=== PATIENT | male | born 1970 | race Two or more races ===

== ENCOUNTER 2021-09-11 13:50 | Inpatient (IN) | payer MEDICAID, OTHER ==
[~2021-09-11] VITALS: Ht 170.2 cm; Wt 77.0 kg
[2021-09-11 15:09] LABS: Basophils # (auto) 0 10 ^3/uL (0-0.2); Basophils % (auto) 0.1 % (0.0-2.0); Eosinophils # (auto) 0 10 ^3/uL (0-0.8); Hematocrit 48.2 % (41.0-53.0); Hemoglobin 15.9 g/dL (13.5-17.5); Lymphocytes # (auto) 0.1 10 ^3/uL (0.4-5.4); Lymphocytes % (auto) 0.8 % (10.0-50.0); Mean Corpuscular Hgb Conc. 32.9 g/dL (32.0-36.0); Mean Corpuscular Volume 88.1 fL (80.0-100.0); Monocytes # (auto) 0.2 10 ^3/uL (0-1.3); Monocytes % (auto) 1.3 % (0.0-12.0); Neutrophils # (auto) 14.3 10 ^3/uL (1.6-8.6); Neutrophils % (auto) 97.8 % (37.0-80.0); Red Blood Cells 5.47 10^6/uL (4.5-5.90); Red Cell Distribution Width 14.9 % (11.8-14.3); White Blood Cell 14.6 10^3/uL (4.4-10.8)
[2021-09-11 15:35] LABS: Albumin 3.1 g/dL (3.4-5.0); Calcium 8.5 mg/dL (8.5-10.1); Magnesium 1.9 mg/dL (1.6-2.6); Potassium 3.1 mmol/L (3.5-5.1)
[2021-09-11 15:37] LABS: Lactic Acid w/Reflex 3.5 mmol/L (0.4-2.0)
[2021-09-11 15:40] LABS: Bilirubin, Total 3.5 mg/dL (0.2-1.0)
[2021-09-11] MEDS ORDERED: NITROGLYCERIN 0.4 MG SL TAB SL PRN (17:15)
[2021-09-11] MEDS ORDERED: MORPHINE SULFATE INJECTION 2 MG/ML SYRG IV PRN (17:15)
[2021-09-11] MEDS: POTASSIUM CHL 20MEQ/100ML 100 ML IV SCH ×2 (17:45→18:40)
[2021-09-11 22:00] VITALS: BP 109/75
[2021-09-12] VITALS (8 sets, daily range): BP systolic 87–118; BP diastolic 53–77
[2021-09-12 00:41] LABS: Magnesium 1.8 mg/dL (1.6-2.6); Phosphorus 3.2 mg/dL (2.5-4.90)
[2021-09-12] MEDS ORDERED: AZITHROMYCIN 500MG/ 250ML 250 ML IV ONE (01:15)
[2021-09-12] MEDS ORDERED: ACETAMINOPHEN 325 MG TAB PO PRN ×2 (01:15→08:30)
[2021-09-12] MEDS ORDERED: cefTRIAXone 1GM/50ML D5W 50 ML IV ONE (01:15)
[2021-09-12] MEDS ORDERED: SODIUM CHLORIDE 0.9% 250 ML IV ONE (01:15)
[2021-09-12] MEDS ORDERED: VANCOMYCIN PER PHARMACY 0 MG IV SCH (01:30)
[2021-09-12] MEDS ORDERED: VANCOMYCIN 1GM/250ML 250 ML IV ONE (01:45)
[2021-09-12 02:57] LABS: INR 2.1 (0.9-1.15); Partial Thromboplastin Time 34.9 sec (23.6-33.0)
[2021-09-12 03:05] LABS: Alcohol, Urine < 3.0 mg/dL (0-10); Amphetamine Screen, Urine POSITIVE (NEGATIVE); Barbiturate Scree,Urine NEGATIVE (NEGATIVE); Benzodiazephine Screen, Urine NEGATIVE (NEGATIVE); Cannabinoid Screen, Urine POSITIVE (NEGATIVE); Cocaine Screen, Urine NEGATIVE (NEGATIVE); Opiate Scree,Urine NEGATIVE (NEGATIVE); Phencyclidine Screen, Urine NEGATIVE (NEGATIVE)
[2021-09-12 03:17] LABS: Urine Bacteria NONE SEEN /hpf (None Seen); Urine Blood TRACE /uL (Negative); Urine Hyaline Cast FEW /lpf (0 - 2); Urine Mucus FEW (None Seen); Urine Specific Gravity 1.023 (1.001-1.035); Urine WBC 4 /hpf (0 - 3)
[2021-09-12 05:47] LABS: Basophils # (auto) 0 10 ^3/uL (0-0.2); Basophils % (auto) 0.1 % (0.0-2.0); Eosinophils # (auto) 0 10 ^3/uL (0-0.8); Hematocrit 42.8 % (41.0-53.0); Hemoglobin 14.3 g/dL (13.5-17.5); Lymphocytes # (auto) 0.4 10 ^3/uL (0.4-5.4); Lymphocytes % (auto) 2.4 % (10.0-50.0); Mean Corpuscular Hemoglobin 29.5 pg (28.0-32.0); Mean Corpuscular Hgb Conc. 33.4 g/dL (32.0-36.0); Mean Corpuscular Volume 88.2 fL (80.0-100.0); Monocytes # (auto) 0.5 10 ^3/uL (0-1.3); Monocytes % (auto) 3.3 % (0.0-12.0); Neutrophils # (auto) 14.8 10 ^3/uL (1.6-8.6); Neutrophils % (auto) 94.2 % (37.0-80.0); Red Blood Cells 4.85 10^6/uL (4.5-5.90); White Blood Cell 15.7 10^3/uL (4.4-10.8)
[2021-09-12 06:04] LABS: Lactic Acid w/Reflex 3.4 mmol/L (0.4-2.0)
[2021-09-12 06:07] LABS: INR 2.24 (0.9-1.15); Partial Thromboplastin Time 35.3 sec (23.6-33.0)
[2021-09-12 06:08] LABS: Potassium 4.1 mmol/L (3.5-5.1)
[2021-09-12 06:25] LABS: Albumin 2.5 g/dL (3.4-5.0); BUN/Creatinine Ratio 15.3; Bilirubin, Total 2.7 mg/dL (0.2-1.0); CRP High Sensitivity 16.5 mg/dL (< 0.3); Calcium 7.9 mg/dL (8.5-10.1); Magnesium 1.7 mg/dL (1.6-2.6); Phosphorus 3.6 mg/dL (2.5-4.90); Total Protein 6.1 g/dL (6.4-8.2); Uric Acid 7.1 mg/dL (3.5-7.2)
[2021-09-12 06:47] LABS: Thyroid Stimulating Hormone 1.74 uIU/mL (0.358-3.74)
[2021-09-12] MEDS ORDERED: ALBUTEROL SULF 2.5 MG/0.5ML(0.5%) NEB SOLN NEB ONE (08:30)
[2021-09-12] MEDS ORDERED: FOLIC ACID 1 MG TAB PO ONE (08:30)
[2021-09-12] MEDS ORDERED: rifAMPin IV 600 MG in SODIUM CHL 0.9% 100 ML IV ONE (08:30)
[2021-09-12] MEDS ORDERED: SUCRALFATE 1 GM/10 ML ORAL SUSP PO ONE (08:30)
[2021-09-12] MEDS ORDERED: GENTAMICIN PER PHARMACY 0 ML IV SCH (08:30)
[2021-09-12] MEDS ORDERED: ONDANSETRON HCL 4 MG/2 ML VIAL IV PRN (08:30)
[2021-09-12] MEDS ORDERED: PROMETHAZINE-DM 5 ML ORAL SYRUP PO PRN (08:30)
[2021-09-12] MEDS ORDERED: BUDESONIDE (INHALATION) 0.5 MG/2 ML NEB NEB ONE (08:30)
[2021-09-12] MEDS ORDERED: LORazepam 0.5 MG TAB PO PRN (08:30)
[2021-09-12] MEDS ORDERED: DOCUSATE SOD 100 MG CAP PO PRN (08:30)
[2021-09-12] MEDS ORDERED: LACTULOSE 20Gm/30ML SOLN PO PRN (08:30)
[2021-09-12] MEDS ORDERED: FERROUS SULFATE 325mg EC TAB PO ONE (08:30)
[2021-09-12] MEDS ORDERED: MULTIPLE VITAMINS W/ MINERALS TAB PO ONE (08:30)
[2021-09-12] MEDS ORDERED: IPRATROPIUM BROM 0.5 MG/2.5ML INH SOL NEB ONE (08:30)
[2021-09-12] MEDS ORDERED: HYDROcodone-ACET 5/325MG TAB PO ONE (08:30)
[2021-09-12] MEDS ORDERED: PANTOPRAZOLE 40 MG/10 ML VIAL INJ IV ONE (08:30)
[2021-09-12] MEDS ORDERED: hydrALAZINE HCL 20 MG/ML VL IV PRN (08:30)
[2021-09-12] MEDS ORDERED: MORPHINE SULFATE INJECTION 2 MG/ML SYRG IV PRN (08:30)
[2021-09-12] MEDS ORDERED: MONTELUKAST SODIUM 10 MG TAB PO ONE (08:30)
[2021-09-12] MEDS ORDERED: rifAMPin IV 600 MG in SODIUM CHL 0.9% 100 ML IV SCH (10:00)
[2021-09-12] MEDS ORDERED: APIXABAN 5 MG TAB PO SCH (10:00)
[2021-09-12] MEDS: PANTOPRAZOLE 40 MG/10 ML VIAL INJ IV SCH (11:20)
[2021-09-12] MEDS: FOLIC ACID 1 MG TAB PO SCH (11:21)
[2021-09-12] MEDS: THIAMINE HCL 100 MG TAB PO SCH (11:21)
[2021-09-12] MEDS: ASPirin 81 mg TAB PO SCH (11:21)
[2021-09-12] MEDS: MULTIPLE VITAMINS W/ MINERALS TAB PO SCH (11:22)
[2021-09-12] MEDS: CYANOCOBALAMIN 500 MCG TAB PO SCH (11:22)
[2021-09-12] MEDS: CHOLECALCIFEROL (VITD3) 2,000 UNIT CAP/TAB PO SCH (11:23)
[2021-09-12] MEDS: SUCRALFATE 1 GM/10 ML ORAL SUSP PO SCH ×3 (11:23→22:48)
[2021-09-12] MEDS: FUROSEMIDE 20 MG/2 ML VIAL IV SCH ×2 (11:36→18:05)
[2021-09-12] MEDS ORDERED: FERROUS SULFATE 325mg EC TAB PO SCH (12:00)
[2021-09-12] MEDS ORDERED: HYDROcodone-ACET 5/325MG TAB PO PRN (14:30)
[2021-09-12] MEDS ORDERED: MEROPENEM 1GM IVPB 100 ML IV ONE (15:15)
[2021-09-12] MEDS ORDERED: DOBUTamine 1000MCG/ML 250 ML IV SCH (15:30)
[2021-09-12] MEDS: IPRATROPIUM BROM 0.5 MG/2.5ML INH SOL NEB SCH ×2 (19:22→22:16)
[2021-09-12] MEDS: ALBUTEROL SULF 2.5 MG/0.5ML(0.5%) NEB SOLN NEB PRN ×2 (19:22→22:16)
[2021-09-12] MEDS ORDERED: AZITHROMYCIN 500MG/ 250ML 250 ML IV SCH (21:00)
[2021-09-12] MEDS ORDERED: cefTRIAXone 1GM/50ML D5W 50 ML IV SCH (21:00)
[2021-09-12] MEDS ORDERED: ATORVASTATIN 20 MG TAB PO SCH (22:00)
[2021-09-12] MEDS ORDERED: MONTELUKAST SODIUM 10 MG TAB PO SCH (22:00)
[2021-09-12] MEDS: ACETYLCYSTEINE 10 %(100MG/ML) SOL 4ML NEB SCH (22:16)
[2021-09-12] MEDS: BUDESONIDE (INHALATION) 0.5 MG/2 ML NEB NEB SCH (22:17)
[2021-09-12] MEDS: QUEtiapine FUMARATE 25 MG TAB PO SCH (22:48)
[2021-09-12] MEDS: SILDENAFIL CITRATE 20 MG TAB PO SCH (22:48)
[2021-09-12] MEDS ORDERED: ALBUMIN 5% 250 ML IV ONE (23:45)
[2021-09-13] VITALS (58 sets, daily range): BP systolic 83–122; BP diastolic 44–87
[2021-09-13] MEDS ORDERED: VANCOMYCIN 1GM/250ML 250 ML IV SCH (03:00)
[2021-09-13] MEDS: IPRATROPIUM BROM 0.5 MG/2.5ML INH SOL NEB SCH ×6 (03:47→22:48)
[2021-09-13] MEDS: ALBUTEROL SULF 2.5 MG/0.5ML(0.5%) NEB SOLN NEB PRN ×2 (03:47→05:55)
[2021-09-13] MEDS ORDERED: MEROPENEM 1GM IVPB 100 ML IV SCH (04:00)
[2021-09-13] MEDS: BUDESONIDE (INHALATION) 0.5 MG/2 ML NEB NEB SCH ×2 (05:55→19:01)
[2021-09-13] MEDS: ACETYLCYSTEINE 10 %(100MG/ML) SOL 4ML NEB SCH ×3 (05:56→19:16)
[2021-09-13 06:00] LABS: Basophils # (auto) 0.1 10 ^3/uL (0-0.2); Basophils % (auto) 0.5 % (0.0-2.0); Eosinophils # (auto) 0 10 ^3/uL (0-0.8); Eosinophils % (auto) 0.4 % (0.0-7.0); Hematocrit 39.7 % (41.0-53.0); Hemoglobin 13.6 g/dL (13.5-17.5); Lymphocytes # (auto) 0.4 10 ^3/uL (0.4-5.4); Lymphocytes % (auto) 3.8 % (10.0-50.0); Mean Corpuscular Hemoglobin 29.7 pg (28.0-32.0); Mean Corpuscular Hgb Conc. 34.3 g/dL (32.0-36.0); Mean Corpuscular Volume 86.6 fL (80.0-100.0); Monocytes # (auto) 0.4 10 ^3/uL (0-1.3); Monocytes % (auto) 4.5 % (0.0-12.0); Neutrophils # (auto) 8.9 10 ^3/uL (1.6-8.6); Neutrophils % (auto) 90.8 % (37.0-80.0); Red Blood Cells 4.58 10^6/uL (4.5-5.90); White Blood Cell 9.8 10^3/uL (4.4-10.8)
[2021-09-13 06:20] LABS: INR 1.49 (0.9-1.15)
[2021-09-13 06:23] LABS: Potassium 3.6 mmol/L (3.5-5.1)
[2021-09-13 06:24] LABS: Albumin 2.3 g/dL (3.4-5.0); BUN/Creatinine Ratio 23.3; Calcium 7.8 mg/dL (8.5-10.1)
[2021-09-13 06:36] LABS: Bilirubin, Total 2.5 mg/dL (0.2-1.0); Total Protein 5.6 g/dL (6.4-8.2)
[2021-09-13] MEDS: SUCRALFATE 1 GM/10 ML ORAL SUSP PO SCH ×4 (06:38→21:20)
[2021-09-13] MEDS: FUROSEMIDE 20 MG/2 ML VIAL IV SCH ×2 (07:15→17:54)
[2021-09-13] MEDS: MULTIPLE VITAMINS W/ MINERALS TAB PO SCH (10:00)
[2021-09-13 10:02] LABS: Hepatitis B Surface Antibody Negative (Negative)
[2021-09-13] MEDS: THIAMINE HCL 100 MG TAB PO SCH (10:06)
[2021-09-13] MEDS: CHOLECALCIFEROL (VITD3) 2,000 UNIT CAP/TAB PO SCH (10:06)
[2021-09-13] MEDS: FOLIC ACID 1 MG TAB PO SCH (10:06)
[2021-09-13] MEDS: CYANOCOBALAMIN 500 MCG TAB PO SCH (10:06)
[2021-09-13] MEDS: SILDENAFIL CITRATE 20 MG TAB PO SCH ×3 (10:06→21:20)
[2021-09-13] MEDS: ASPirin 81 mg TAB PO SCH (10:06)
[2021-09-13] MEDS: PANTOPRAZOLE 40 MG/10 ML VIAL INJ IV SCH (10:07)
[2021-09-13] MEDS ORDERED: QUET1TAB11 PO (10:24)
[2021-09-13 10:30] LABS: Hepatitis A Total Antibody Negative (Negative)
[2021-09-13 12:19] LABS: Hepatitis C Antibody Negative (Negative)
[2021-09-13] MEDS: AMPICILLIN INJ 1 GM in SODIUM CHL 0.9% 50 ML IV SCH (18:25)
[2021-09-13] MEDS: QUEtiapine FUMARATE 25 MG TAB PO SCH (21:21)
[2021-09-14] VITALS (19 sets, daily range): BP systolic 79–103; BP diastolic 52–73
[2021-09-14] MEDS: AMPICILLIN INJ 1 GM in SODIUM CHL 0.9% 50 ML IV SCH ×4 (00:19→17:21)
[2021-09-14] MEDS: IPRATROPIUM BROM 0.5 MG/2.5ML INH SOL NEB SCH ×6 (02:37→22:16)
[2021-09-14 04:15] LABS: Basophils # (auto) 0 10 ^3/uL (0-0.2); Basophils % (auto) 0.3 % (0.0-2.0); Eosinophils # (auto) 0 10 ^3/uL (0-0.8); Eosinophils % (auto) 0.6 % (0.0-7.0); Hematocrit 38.3 % (41.0-53.0); Hemoglobin 13.3 g/dL (13.5-17.5); Lymphocytes # (auto) 0.8 10 ^3/uL (0.4-5.4); Lymphocytes % (auto) 9.4 % (10.0-50.0); Mean Corpuscular Hemoglobin 29.8 pg (28.0-32.0); Mean Corpuscular Hgb Conc. 34.6 g/dL (32.0-36.0); Monocytes # (auto) 0.7 10 ^3/uL (0-1.3); Monocytes % (auto) 8.4 % (0.0-12.0); Neutrophils # (auto) 6.6 10 ^3/uL (1.6-8.6); Neutrophils % (auto) 81.3 % (37.0-80.0); Red Blood Cells 4.46 10^6/uL (4.5-5.90); Red Cell Distribution Width 15.3 % (11.8-14.3); White Blood Cell 8.2 10^3/uL (4.4-10.8)
[2021-09-14 04:27] LABS: INR 1.23 (0.9-1.15)
[2021-09-14 04:28] LABS: Albumin 2.2 g/dL (3.4-5.0); BUN/Creatinine Ratio 20.6; Calcium 7.6 mg/dL (8.5-10.1); Potassium 3.5 mmol/L (3.5-5.1)
[2021-09-14 04:31] LABS: Bilirubin, Total 1.8 mg/dL (0.2-1.0); Total Protein 5.8 g/dL (6.4-8.2)
[2021-09-14] MEDS: FUROSEMIDE 20 MG/2 ML VIAL IV SCH (05:45)
[2021-09-14] MEDS: SUCRALFATE 1 GM/10 ML ORAL SUSP PO SCH ×4 (06:21→22:00)
[2021-09-14] MEDS: BUDESONIDE (INHALATION) 0.5 MG/2 ML NEB NEB SCH ×2 (06:35→22:16)
[2021-09-14] MEDS: ALBUTEROL SULF 2.5 MG/0.5ML(0.5%) NEB SOLN NEB PRN ×2 (06:35→14:32)
[2021-09-14] MEDS: ACETYLCYSTEINE 10 %(100MG/ML) SOL 4ML NEB SCH (06:35)
[2021-09-14] MEDS: CHOLECALCIFEROL (VITD3) 2,000 UNIT CAP/TAB PO SCH (09:30)
[2021-09-14] MEDS: ASPirin 81 mg TAB PO SCH (09:30)
[2021-09-14] MEDS: PANTOPRAZOLE 40 MG/10 ML VIAL INJ IV SCH (09:30)
[2021-09-14] MEDS: MULTIPLE VITAMINS W/ MINERALS TAB PO SCH (09:30)
[2021-09-14] MEDS: CYANOCOBALAMIN 500 MCG TAB PO SCH (09:31)
[2021-09-14] MEDS: FOLIC ACID 1 MG TAB PO SCH (09:31)
[2021-09-14] MEDS: THIAMINE HCL 100 MG TAB PO SCH (09:31)
[2021-09-14] MEDS: SILDENAFIL CITRATE 20 MG TAB PO SCH ×2 (09:36→22:00)
[2021-09-14] MEDS: QUEtiapine FUMARATE 25 MG TAB PO SCH (22:00)
[2021-09-15] MEDS: IPRATROPIUM BROM 0.5 MG/2.5ML INH SOL NEB SCH ×7 (02:24→21:47)
[2021-09-15 05:18] VITALS: BP 109/69
[2021-09-15 05:52] LABS: Basophils # (auto) 0.1 10 ^3/uL (0-0.2); Basophils % (auto) 2.5 % (0.0-2.0); Eosinophils # (auto) 0.1 10 ^3/uL (0-0.8); Eosinophils % (auto) 2.5 % (0.0-7.0); Hematocrit 37.8 % (41.0-53.0); Lymphocytes # (auto) 0.8 10 ^3/uL (0.4-5.4); Lymphocytes % (auto) 16.5 % (10.0-50.0); Mean Corpuscular Hemoglobin 29.5 pg (28.0-32.0); Mean Corpuscular Hgb Conc. 34.5 g/dL (32.0-36.0); Mean Corpuscular Volume 85.4 fL (80.0-100.0); Monocytes # (auto) 0.8 10 ^3/uL (0-1.3); Neutrophils # (auto) 3.2 10 ^3/uL (1.6-8.6); Neutrophils % (auto) 62.5 % (37.0-80.0); Nucleated Red Blood Cells % 0.1 %; Red Blood Cells 4.43 10^6/uL (4.5-5.90); White Blood Cell 5.1 10^3/uL (4.4-10.8)
[2021-09-15] MEDS: AMPICILLIN INJ 1 GM in SODIUM CHL 0.9% 50 ML IV SCH ×5 (06:00→17:37)
[2021-09-15 06:04] LABS: INR 1.2 (0.9-1.15)
[2021-09-15] MEDS: SUCRALFATE 1 GM/10 ML ORAL SUSP PO SCH ×4 (06:08→21:11)
[2021-09-15 06:11] LABS: Potassium 3.5 mmol/L (3.5-5.1)
[2021-09-15 06:19] LABS: Albumin 2.2 g/dL (3.4-5.0); Calcium 8.1 mg/dL (8.5-10.1); Magnesium 2.1 mg/dL (1.6-2.6)
[2021-09-15 06:29] LABS: Bilirubin, Total 1.4 mg/dL (0.2-1.0); Total Protein 5.9 g/dL (6.4-8.2)
[2021-09-15] MEDS: BUDESONIDE (INHALATION) 0.5 MG/2 ML NEB NEB SCH ×3 (07:39→21:47)
[2021-09-15] MEDS: ALBUTEROL SULF 2.5 MG/0.5ML(0.5%) NEB SOLN NEB PRN ×2 (07:39→13:37)
[2021-09-15 09:00] VITALS: BP 99/67
[2021-09-15] MEDS: FUROSEMIDE 20 MG/2 ML VIAL IV SCH (09:45)
[2021-09-15] MEDS: MULTIPLE VITAMINS W/ MINERALS TAB PO SCH (09:46)
[2021-09-15] MEDS: PANTOPRAZOLE 40 MG/10 ML VIAL INJ IV SCH (09:46)
[2021-09-15] MEDS: SILDENAFIL CITRATE 20 MG TAB PO SCH ×2 (09:46→21:11)
[2021-09-15] MEDS: FOLIC ACID 1 MG TAB PO SCH (09:46)
[2021-09-15] MEDS: THIAMINE HCL 100 MG TAB PO SCH (09:46)
[2021-09-15] MEDS: ASPirin 81 mg TAB PO SCH (09:46)
[2021-09-15] MEDS: ENOXAPARIN SOD 40 MG/0.4 ML SYRINGE SC SCH (09:47)
[2021-09-15] MEDS: CHOLECALCIFEROL (VITD3) 2,000 UNIT CAP/TAB PO SCH (09:47)
[2021-09-15] MEDS: SODIUM CHLORIDE 0.9% 1,000 ML IV SCH ×2 (11:47→22:41)
[2021-09-15 13:00] VITALS: BP 116/78
[2021-09-15 17:00] VITALS: BP 99/67
[2021-09-15] MEDS: QUEtiapine FUMARATE 25 MG TAB PO SCH (21:11)
[2021-09-15 22:00] VITALS: BP 130/71
[2021-09-16] MEDS: AMPICILLIN INJ 1 GM in SODIUM CHL 0.9% 50 ML IV SCH ×4 (00:16→17:50)
[2021-09-16 01:16] VITALS: BP 108/63
[2021-09-16] MEDS: IPRATROPIUM BROM 0.5 MG/2.5ML INH SOL NEB SCH ×6 (02:08→21:22)
[2021-09-16 05:10] VITALS: BP 122/80
[2021-09-16] MEDS: SUCRALFATE 1 GM/10 ML ORAL SUSP PO SCH ×4 (06:03→21:23)
[2021-09-16] MEDS: BUDESONIDE (INHALATION) 0.5 MG/2 ML NEB NEB SCH ×2 (06:22→18:55)
[2021-09-16] MEDS: SODIUM CHLORIDE 0.9% 1,000 ML IV SCH ×2 (07:13→11:55)
[2021-09-16 08:36] VITALS: BP 120/74
[2021-09-16] MEDS: FUROSEMIDE 20 MG/2 ML VIAL IV SCH (10:27)
[2021-09-16] MEDS: PANTOPRAZOLE 40 MG/10 ML VIAL INJ IV SCH (10:27)
[2021-09-16] MEDS: ASPirin 81 mg TAB PO SCH (10:27)
[2021-09-16] MEDS: SILDENAFIL CITRATE 20 MG TAB PO SCH ×2 (10:27→21:23)
[2021-09-16] MEDS: CHOLECALCIFEROL (VITD3) 2,000 UNIT CAP/TAB PO SCH (10:27)
[2021-09-16] MEDS: MULTIPLE VITAMINS W/ MINERALS TAB PO SCH (10:27)
[2021-09-16] MEDS: FOLIC ACID 1 MG TAB PO SCH (10:27)
[2021-09-16] MEDS: THIAMINE HCL 100 MG TAB PO SCH (10:27)
[2021-09-16] MEDS: ENOXAPARIN SOD 40 MG/0.4 ML SYRINGE SC SCH (10:28)
[2021-09-16 11:09] LABS: Urine Bacteria FEW /hpf (None Seen); Urine Blood 3+ /uL (Negative); Urine Specific Gravity 1.014 (1.001-1.035); Urine WBC 245 /hpf (0 - 3); Urine WBC Clumps PRESENT /hpf (None Seen)
[2021-09-16 11:15] LABS: Protein, Urine 88.7 mg/dL (0.0-11.9)
[2021-09-16] MEDS ORDERED: POTASSIUM PHOSPHATE 22 MEQ in SODIUM CHL 0.9% 100 ML IV ONE (11:45)
[2021-09-16 13:00] VITALS: BP 110/75
[2021-09-16] MEDS: MAGNESIUM SULFATE 1GM/100ML 100 ML IV SCH ×3 (13:28→16:40)
[2021-09-16 17:00] VITALS: BP 107/72
[2021-09-16] MEDS: ALBUTEROL SULF 2.5 MG/0.5ML(0.5%) NEB SOLN NEB PRN ×2 (18:55→21:21)
[2021-09-16] MEDS: QUEtiapine FUMARATE 25 MG TAB PO SCH (21:23)
[2021-09-16 21:36] VITALS: BP 121/80
[2021-09-17] MEDS: AMPICILLIN INJ 1 GM in SODIUM CHL 0.9% 50 ML IV SCH ×5 (00:26→23:58)
[2021-09-17] MEDS: ALBUTEROL SULF 2.5 MG/0.5ML(0.5%) NEB SOLN NEB PRN ×4 (01:51→21:46)
[2021-09-17] MEDS: IPRATROPIUM BROM 0.5 MG/2.5ML INH SOL NEB SCH ×6 (01:51→21:47)
[2021-09-17] MEDS: SODIUM CHLORIDE 0.9% 1,000 ML IV SCH ×2 (03:51→12:15)
[2021-09-17 04:40] VITALS: BP 120/67
[2021-09-17] MEDS: SUCRALFATE 1 GM/10 ML ORAL SUSP PO SCH ×4 (06:00→21:30)
[2021-09-17 08:51] VITALS: BP 110/58
[2021-09-17] MEDS: FOLIC ACID 1 MG TAB PO SCH (09:07)
[2021-09-17] MEDS: ASPirin 81 mg TAB PO SCH (09:07)
[2021-09-17] MEDS: PANTOPRAZOLE 40 MG/10 ML VIAL INJ IV SCH (09:07)
[2021-09-17] MEDS: FUROSEMIDE 20 MG/2 ML VIAL IV SCH (09:07)
[2021-09-17] MEDS: CHOLECALCIFEROL (VITD3) 2,000 UNIT CAP/TAB PO SCH (09:08)
[2021-09-17] MEDS: SILDENAFIL CITRATE 20 MG TAB PO SCH ×2 (09:08→21:31)
[2021-09-17] MEDS: ENOXAPARIN SOD 40 MG/0.4 ML SYRINGE SC SCH (09:08)
[2021-09-17] MEDS: THIAMINE HCL 100 MG TAB PO SCH (09:08)
[2021-09-17] MEDS: MULTIPLE VITAMINS W/ MINERALS TAB PO SCH (09:08)
[2021-09-17] MEDS: BUDESONIDE (INHALATION) 0.5 MG/2 ML NEB NEB SCH ×2 (10:00→19:24)
[2021-09-17 13:00] VITALS: BP 119/81
[2021-09-17 16:48] VITALS: BP 120/81
[2021-09-17 20:00] VITALS: BP 119/82
[2021-09-17] MEDS: QUEtiapine FUMARATE 25 MG TAB PO SCH (21:31)
[2021-09-18] MEDS: IPRATROPIUM BROM 0.5 MG/2.5ML INH SOL NEB SCH ×4 (02:00→13:19)
[2021-09-18] MEDS: SODIUM CHLORIDE 0.9% 1,000 ML IV SCH (02:43)
[2021-09-18 05:25] VITALS: BP 116/72
[2021-09-18] MEDS: AMPICILLIN INJ 1 GM in SODIUM CHL 0.9% 50 ML IV SCH ×2 (06:13→12:36)
[2021-09-18 06:26] LABS: Albumin 2.3 g/dL (3.4-5.0); Calcium 7.8 mg/dL (8.5-10.1); Potassium 3.5 mmol/L (3.5-5.1)
[2021-09-18 06:28] LABS: BUN/Creatinine Ratio 18.9; Magnesium 2.1 mg/dL (1.6-2.6)
[2021-09-18 06:39] LABS: INR 1.21 (0.9-1.15)
[2021-09-18 06:48] LABS: Hematocrit 37.2 % (41.0-53.0); Hemoglobin 12.7 g/dL (13.5-17.5); Mean Corpuscular Hemoglobin 29.3 pg (28.0-32.0); Mean Corpuscular Hgb Conc. 34.1 g/dL (32.0-36.0); Red Blood Cells 4.32 10^6/uL (4.5-5.90); Red Cell Distribution Width 15.1 % (11.8-14.3); White Blood Cell 5.9 10^3/uL (4.4-10.8)
[2021-09-18] MEDS: BUDESONIDE (INHALATION) 0.5 MG/2 ML NEB NEB SCH (07:01)
[2021-09-18] MEDS: ALBUTEROL SULF 2.5 MG/0.5ML(0.5%) NEB SOLN NEB PRN (07:01)
[2021-09-18] MEDS: SUCRALFATE 1 GM/10 ML ORAL SUSP PO SCH ×2 (07:05→12:00)
[2021-09-18 07:07] LABS: Basophils % (manual) 0 (0.0-2.0); Blast Cells 0; Myelocytes % 0; Reactive Lymphocytes 0
[2021-09-18 08:49] LABS: Band Neutrophils % (manual) 1; Eosinophils % (manual) 3 (0-7); Lymphocytes % (manual) 11 (10.0-50.0); Metamyelocytes % 1; Monocytes % (manual) 9 (0-12); Promyelocytes % 1
[2021-09-18 09:00] VITALS: BP 124/92
[2021-09-18] MEDS: FUROSEMIDE 20 MG/2 ML VIAL IV SCH (09:16)
[2021-09-18] MEDS: CHOLECALCIFEROL (VITD3) 2,000 UNIT CAP/TAB PO SCH (09:17)
[2021-09-18] MEDS: MULTIPLE VITAMINS W/ MINERALS TAB PO SCH (09:17)
[2021-09-18] MEDS: FOLIC ACID 1 MG TAB PO SCH (09:17)
[2021-09-18] MEDS: SILDENAFIL CITRATE 20 MG TAB PO SCH (09:17)
[2021-09-18] MEDS: PANTOPRAZOLE 40 MG/10 ML VIAL INJ IV SCH (09:17)
[2021-09-18] MEDS: ENOXAPARIN SOD 40 MG/0.4 ML SYRINGE SC SCH (09:17)
[2021-09-18] MEDS: THIAMINE HCL 100 MG TAB PO SCH (09:17)
[2021-09-18] MEDS ORDERED: LEVO750T8 PO (11:26)
[2021-09-18] MEDS ORDERED: FURO1TAB33 PO (11:26)
[2021-09-18] MEDS ORDERED: ALBUAER3 IN (11:26)
[2021-09-18] MEDS ORDERED: SILD20TA PO (11:26)
[2021-09-18] MEDS ORDERED: DOCU-94 PO (11:26)
[2021-09-18 13:00] VITALS: BP 116/83
== END 2021-09-18 15:43 | disposition home or self-care (01) | DRG 720 ==
LOC: ER 13:50 → TELE 17:01 → TELE-WESTW 20:40 → ICU WEST 09-13 02:24 → TELE-WESTW 09-14 17:51
PROVIDERS: ADMIT Hospitalist; ATTEND Internal Medicine
DX: A41.89 Other specified sepsis (principal); N17.0 Acute kidney failure with tubular necrosis; R65.21 Severe sepsis with septic shock; G93.41 Metabolic encephalopathy; I50.43 Acute on chronic combined systolic (congestive) and diastolic (congestive) heart failure; E44.0 Moderate protein-calorie malnutrition; D68.9 Coagulation defect, unspecified; E83.39 Other disorders of phosphorus metabolism; J18.9 Pneumonia, unspecified organism; I27.29 Other secondary pulmonary hypertension; D69.6 Thrombocytopenia, unspecified; Z68.24 Body mass index [BMI] 24.0-24.9, adult; E78.5 Hyperlipidemia, unspecified; E66.9 Obesity, unspecified; E83.42 Hypomagnesemia; E86.0 Dehydration; E87.6 Hypokalemia; I13.0 Hypertensive heart and chronic kidney disease with heart failure and stage 1 through stage 4 chronic kidney disease, or unspecified chronic kidney disease; I27.81 Cor pulmonale (chronic); I47.1 Supraventricular tachycardia; F32.A Depression, unspecified; F41.9 Anxiety disorder, unspecified; F17.210 Nicotine dependence, cigarettes, uncomplicated; R31.9 Hematuria, unspecified; F15.90 Other stimulant use, unspecified, uncomplicated; R79.89 Other specified abnormal findings of blood chemistry; J44.0 Chronic obstructive pulmonary disease with (acute) lower respiratory infection; L53.9 Erythematous condition, unspecified; Z20.822 Contact with and (suspected) exposure to COVID-19; I50.82 Biventricular heart failure; K59.00 Constipation, unspecified; L03.116 Cellulitis of left lower limb; N18.32 Chronic kidney disease, stage 3b; Z59.00 Homelessness unspecified; Z98.61 Coronary angioplasty status; Z82.3 Family history of stroke; Z86.73 Personal history of transient ischemic attack (TIA), and cerebral infarction without residual deficits; Z91.19 Patient's noncompliance with other medical treatment and regimen
CPT/HCPCS: 36415; 70450; 71045; 71250; 74176; 76856; 78582; 80053; 80061; 80202; 80307; 81001; 82140; 82306; 82550; 82570; 83605; 83615; 83690; 83735; 83880; 83970; 84100; 84156; 84300; 84443; 84484; 84550; 85007; 85025; 85027; 85379; 85610; 85652; 85730; 86141; 86704; 86706; 86708; 86803; 87040; 87077; 87086; 87186; 87340; 93005; 93306; 93925; 93970; 94640; 96365; 97110; 97116; 97163; 97530; C9113; G0378; J0696; J2185; J3480

== ENCOUNTER 2021-11-01 14:28 | Emergency (ER) | payer MEDICAID ==
[~2021-11-01] VITALS: Ht 175.3 cm; Wt 81.6 kg
[~2021-11-01 14:28] MED LIST: ALBUAER3 IN; DOCU-94 PO; FURO1TAB33 PO; LEVO750T8 PO; QUET1TAB11 PO; SILD20TA PO
[2021-11-01 14:30] VITALS: BP 135/80
[2021-11-01 16:52] LABS: Basophils # (auto) 0.1 10 ^3/uL (0-0.2); Basophils % (auto) 1.1 % (0.0-2.0); Eosinophils # (auto) 0.1 10 ^3/uL (0-0.8); Eosinophils % (auto) 1.6 % (0.0-7.0); Hematocrit 45.1 % (41.0-53.0); Lymphocytes % (auto) 18.2 % (10.0-50.0); Mean Corpuscular Hgb Conc. 33.2 g/dL (32.0-36.0); Mean Corpuscular Volume 87.2 fL (80.0-100.0); Monocytes # (auto) 0.6 10 ^3/uL (0-1.3); Monocytes % (auto) 10.2 % (0.0-12.0); Neutrophils # (auto) 3.9 10 ^3/uL (1.6-8.6); Neutrophils % (auto) 68.9 % (37.0-80.0); Nucleated Red Blood Cells % 0.1 %; Red Blood Cells 5.17 10^6/uL (4.5-5.90); Red Cell Distribution Width 16.1 % (11.8-14.3); White Blood Cell 5.7 10^3/uL (4.4-10.8)
[2021-11-01 17:25] LABS: Albumin 3.4 g/dL (3.4-5.0); Potassium 3.6 mmol/L (3.5-5.1)
[2021-11-01 17:30] LABS: Bilirubin, Total 1.5 mg/dL (0.2-1.0)
== END 2021-11-01 18:27 | disposition left against medical advice (07) ==
LOC: ER 14:28
DX: I50.9 Heart failure, unspecified (principal); I25.2 Old myocardial infarction; E78.5 Hyperlipidemia, unspecified; F17.210 Nicotine dependence, cigarettes, uncomplicated; Z86.73 Personal history of transient ischemic attack (TIA), and cerebral infarction without residual deficits; Z79.2 Long term (current) use of antibiotics; Z79.899 Other long term (current) drug therapy
CPT/HCPCS: 36415; 80053; 83880; 84484; 85025; 93005